=== PATIENT | male | born 1975 | race Caucasian/White ===

== ENCOUNTER 2019-07-13 22:24 | Emergency (ER) | payer BC ==
[~2019-07-13] VITALS: Ht 185.4 cm; Wt 108.9 kg
[2019-07-13 23:22] VITALS: BP_SYST 165
[2019-07-13] MEDS ORDERED: IBUPROFEN 800 MG TABLET PO ONE (23:45)
[2019-07-14] MEDS ORDERED: NACL 0.9% 1,000 ML IV ONE (03:30)
[2019-07-14] MEDS ORDERED: ONDANSETRON HCL 4 MG/2 ML VIAL IVP ONE (03:30)
[2019-07-14] MEDS ORDERED: KETOROLAC TROMETHAMINE 30 MG VIAL IVP ONE (03:30)
[2019-07-14 03:58] LABS: BASOPHILS # (AUTO) 0.1 K/uL (0.0-0.2); BASOPHILS % (AUTO) 0.8 % (0.0-2.0); EOSINOPHILS % (AUTO) 0.5 % (0.0-4.0); HEMATOCRIT 43.9 % (36-54); HEMOGLOBIN 15.3 g/dL (14.0-18.0); LYMPHOCYTES # (AUTO) 0.6 K/uL (1.0-5.5); LYMPHOCYTES % (AUTO) 7.5 % (20.5-51.5); MEAN CORPUSCULAR HEMOGLOBIN 32 pg (27-31); MEAN CORPUSCULAR HGB CONC 35 % (32-36); MEAN CORPUSCULAR VOLUME 91 fL (79.0-98.0); MONOCYTES # (AUTO) 0.5 K/uL (0.0-1.0); MONOCYTES % (AUTO) 7.1 % (1.7-9.3); NEUTROPHILS # (AUTO) 6.4 K/uL (1.8-7.7); NEUTROPHILS % (AUTO) 84.1 % (40.0-70.0); PLATELET COUNT (AUTO) 191 K/uL (130-430); RED BLOOD CELL COUNT(AUTO) 4.85 MIL/uL (4.2-6.2); RED CELL DISTRIBUTION WIDTH 13.1 % (9.0-15.0); WHITE BLOOD COUNT (AUTO) 7.6 K/uL (4.8-10.8)
[2019-07-14 04:09] LABS: CALCIUM 8.7 mg/dL (8.4-11.0); CREATININE 1.01 mg/dL (0.55-1.30); POTASSIUM 3.4 mmol/L (3.5-5.1)
[2019-07-14 04:15] LABS: TOTAL BILIRUBIN 0.3 mg/dL (0.0-1.0)
[2019-07-14 05:00] VITALS: BP_SYST 149
== END 2019-07-14 05:00 | disposition home or self-care (01) ==
LOC: SED 22:24
DX: J10.1 Influenza due to other identified influenza virus with other respiratory manifestations (principal); R51 Headache; K37 Unspecified appendicitis
CPT/HCPCS: 36415; 80053; 85025; 86710; 96374; 96375; 99283; J1885; J2405; J7030